=== PATIENT | male | born 1995 | race Caucasian/White ===

== ENCOUNTER 2019-04-23 23:32 | Emergency (ER) | payer BC, OTHER ==
[~2019-04-23] VITALS: Ht 188 cm; Wt 102.5 kg
[~2019-04-23 23:32] MED LIST: HYDR-4011 PO; NAPR-985 PO
[2019-04-23 23:37] VITALS: BP 131/75; PULSE 57; RESP 16; Ht 188 cm; Wt 102.5 kg
[2019-04-24] MEDS ORDERED: KETOROLAC 30 MG INJ IM STA (00:05)
[2019-04-24] MEDS ORDERED: DIAZEPAM 5 MG TAB PO ONE (00:30)
== END 2019-04-24 02:08 | disposition home or self-care (01) ==
LOC: FTE 23:32
DX: S39.92XA Unspecified injury of lower back, initial encounter (principal); V80.010A Animal-rider injured by fall from or being thrown from horse in noncollision accident, initial encounter
CPT/HCPCS: 72100; 81001; J1885; 96372